=== PATIENT | male | born 1975 | race Caucasian/White ===

== ENCOUNTER → 2017-06-29 | Outpatient (CLI) | payer BC ==
[~2017-06-29] VITALS: Ht 172.7 cm; Wt 90.7 kg
[~2017-06-29] MED LIST: ALDACTONE25 MG PO; ALDACTONE50 MG; AMITRIPTYLINE H25 M2; ASPIR 8181 MG; BENICAR40 MG; CATAPRES-TTS 20.2 M1 TRANSDERM; CATAPRES0.2 MG; CIALIS20 MG; CLONIDINE0.1 PO; HYDROCHLOROTHIA25 M2 PO; KEPPRA 500 MG500 M1; LIPITOR20 MG PO; NORVASC10 MG PO; PROTONIX40 M1 PO; ZOCOR20 MG
[2017-06-29 09:00] VITALS: BP 144/96
[2017-06-29 09:05] VITALS: BP 144/96
== END | disposition home or self-care (01) ==
LOC: M.INT 06-20 09:30
DX: I77.4 Celiac artery compression syndrome (principal); I10 Essential (primary) hypertension; E78.5 Hyperlipidemia, unspecified; K21.9 Gastro-esophageal reflux disease without esophagitis; Z82.49 Family history of ischemic heart disease and other diseases of the circulatory system; Z79.82 Long term (current) use of aspirin; Z79.899 Other long term (current) drug therapy; Z98.890 Other specified postprocedural states

== ENCOUNTER → 2018-01-01 | Outpatient (CLI) | payer BC | LOC: M.MRI 12:51 | DX: M51.16 Intervertebral disc disorders with radiculopathy, lumbar region (principal); M48.062 Spinal stenosis, lumbar region with neurogenic claudication; I10 Essential (primary) hypertension; E78.5 Hyperlipidemia, unspecified ==